=== PATIENT | female | born 1960 | race Two or more races ===

== ENCOUNTER → 2017-08-28 15:09 | Outpatient (CLI) | payer OTHER | END | disposition home or self-care (01) | LOC: LAB 15:09 | DX: J11.1 Influenza due to unidentified influenza virus with other respiratory manifestations (principal) ==

== ENCOUNTER 2017-11-21 07:55 | Outpatient (CLI) | payer OTHER | END 2017-11-21 08:12 | disposition home or self-care (01) | LOC: LAB 07:55 | DX: I11.0 Hypertensive heart disease with heart failure (principal); D53.8 Other specified nutritional anemias; N39.0 Urinary tract infection, site not specified; E04.0 Nontoxic diffuse goiter; E78.2 Mixed hyperlipidemia; N36.2 Urethral caruncle ==

== ENCOUNTER 2018-01-31 18:47 | Emergency (ER) | payer OTHER ==
[~2018-01-31] VITALS: Ht 162.6 cm; Wt 86.2 kg
[2018-01-31] MEDS ORDERED: GLIMEPIRIDE1 MG (19:31)
[2018-01-31] MEDS ORDERED: SYNTHROID150 MCG (19:31)
[2018-01-31] MEDS ORDERED: OSTERA TABLET1 EACH (19:32)
== END 2018-01-31 21:54 | disposition home or self-care (01) ==
LOC: ER 18:47
DX: S80.11XA Contusion of right lower leg, initial encounter (principal); S93.491A Sprain of other ligament of right ankle, initial encounter; W18.39XA Other fall on same level, initial encounter; Y93.89 Activity, other specified; Y92.89 Other specified places as the place of occurrence of the external cause; Y99.8 Other external cause status